=== PATIENT | male | born 1935 | race Caucasian/White ===

== ENCOUNTER 2022-05-12 05:45 | Day surgery (SDC) | payer OTHER ==
[~2022-05-12] VITALS: Ht 177.8 cm; Wt 65.8 kg
[2022-05-12] MEDS ORDERED: SIMETHICONE 40 MG/0.6 ML ML ONE (06:44)
[2022-05-12] MEDS ORDERED: MIDAZOLAM HCL 5 MG/5 ML VIAL ONE (06:44)
[2022-05-12] MEDS ORDERED: fentaNYL CITRATE/PF 100 MCG/2 ML AMP ONE (06:44)
[2022-05-12 13:22] VITALS: BP_SYST 106
== END 2022-05-12 09:30 | disposition home or self-care (01) ==
LOC: SDS 05:45 → SMU 05:45 → SDS 09:30
PROVIDERS: ATTEND Internal Medicine Gastroenterology
DX: R19.5 Other fecal abnormalities (principal); D12.2 Benign neoplasm of ascending colon; K64.9 Unspecified hemorrhoids; K57.30 Diverticulosis of large intestine without perforation or abscess without bleeding; I25.10 Atherosclerotic heart disease of native coronary artery without angina pectoris; Z95.1 Presence of aortocoronary bypass graft; Z79.899 Other long term (current) drug therapy; Z20.822 Contact with and (suspected) exposure to COVID-19
CPT/HCPCS: 36415; 45385; 82962; 88305; 99152; 99153; U0003; G0378; J2250; J3010